=== PATIENT | male | born 1955 | race African-American/Black ===

== ENCOUNTER 2018-09-11 09:43 | Outpatient (RCR) | payer MEDICARE, MEDICAID | END 2018-10-05 | disposition home or self-care (01) | LOC: WCC 09:43 | DX: L97.514 Non-pressure chronic ulcer of other part of right foot with necrosis of bone (principal); L97.512 Non-pressure chronic ulcer of other part of right foot with fat layer exposed; E11.621 Type 2 diabetes mellitus with foot ulcer; I13.11 Hypertensive heart and chronic kidney disease without heart failure, with stage 5 chronic kidney disease, or end stage renal disease; E11.22 Type 2 diabetes mellitus with diabetic chronic kidney disease; N18.6 End stage renal disease | CPT/HCPCS: 82962; G0277; G0463 ==

== ENCOUNTER 2018-09-11 10:46 | Outpatient (CLI) | payer MEDICARE, MEDICAID ==
--- NOTE | 2018-09-11 16:03 | Diagnostic Imaging Report ---
Indication: Cough Technique: 2 views of the chest Comparison: None Findings: Lungs and pleural spaces are clear. 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 There are degenerative changes of the thoracic spine. Impression: No acute process
== END 2018-09-11 12:46 | disposition home or self-care (01) ==
LOC: RAD 10:46
DX: R05 Cough (principal)
CPT/HCPCS: 71046